=== PATIENT | male | born 1965 | race Caucasian/White ===

== ENCOUNTER 2016-09-27 05:59 | Day surgery (SDC) | payer OTHER ==
[2016-09-27] MEDS ORDERED: LR 1,000 ML IV SCH (07:30)
[2016-09-27] MEDS ORDERED: MIDAZOLAM 2 MG/2 ML VIAL ONE (07:42)
[2016-09-27] MEDS ORDERED: fentaNYL 100 MCG/2 ML INJ ONE (07:42)
--- NOTE | 2016-09-27 21:04 | GOP ---
[f rep st] OPERATIVE REPORT DATE OF OPERATION: SURGEON: Jordan Justice MD ANESTHESIA: 4 mg of Versed and 100 mcg of fentanyl. PREOPERATIVE DIAGNOSIS: Screening for colon cancer. POSTOPERATIVE DIAGNOSIS: Screening for colon cancer, with diverticulosis, mild rectosigmoid junction, and grade 1 internal hemorrhoids. PROCEDURE PERFORMED: FINDINGS: SPECIMENS: None. DESCRIPTION OF PROCEDURE: The patient was brought into the GI suite. After identification of the patient by 2 independent variables, time-out procedure was performed according to institutional standards. He was placed in left lateral decubitus position with all monitoring in place, and titrated medication was begun. With moderate sedation established, digital rectal exam was performed with findings of a small internal hemorrhoid on the left anterior aspect. Normal size prostate, no masses. Normal rectal tone. An Olympus 180 endoscope was introduced in the rectum, and taken all the way to the terminal ilium without difficulty. There was some tortuosity in the rectosigmoid junction, where diverticular disease was noted. Circumferential inspection of the remainder of the colon was performed using optical technique. Greater than 90% of the mucosa was inspected, with findings of rectosigmoid diverticulosis, mild tortuosity, and grade 1 hemorrhoids, internal. The endoscope was removed with excess insufflation. The patient tolerated the procedure well. He was taken to the recovery room in stable condition. This is a 51-year-old gentleman who presents for elective colonoscopy, previous history of hemorrhoidal disease. COMPLICATIONS: There were no complications. RECOMMENDATIONS: Colonoscopy in 10 years, according to colorectal cancer screening guidelines. High-fiber diet to minimize problems with regard to diverticulosis and hemorrhoidal disease. /[id number]/MODL MTDD
== END 2016-09-27 08:53 | disposition home or self-care (01) ==
LOC: FSGY 05:59
PROVIDERS: ATTEND Surgery
PROC: 0DJD8ZZ Inspection of Lower Intestinal Tract, Via Natural or Artificial Opening Endoscopic (ICD-10-PCS; principal; 2016-09-27 07:15)
DX: Z12.11 Encounter for screening for malignant neoplasm of colon (principal); K64.8 Other hemorrhoids; K57.30 Diverticulosis of large intestine without perforation or abscess without bleeding
CPT/HCPCS: J2250; J3010